=== PATIENT | male | born 1960 | race Caucasian/White ===

== ENCOUNTER 2019-01-01 13:48 | Inpatient (IN) | payer OTHER ==
--- NOTE | 2019-01-01 14:36 | HP ---
HISTORY OF PRESENT ILLNESS: Mr. Lomas is a 58-year-old morbidly obese man, who presented to [facility] in [place] with insidious onset right lower quadrant abdominal pain, which started yesterday. Pain is described as sharp, rated at 9/10, associated with multiple episodes of nausea, but no emesis. Pain has persisted in the right lower quadrant without any radiation. The patient denies any change in his bowel habits. He denies any fevers or chills. PAST MEDICAL HISTORY: Pertinent for degenerative arthritic disease, morbid obesity, and chronic asthma. PAST SURGICAL HISTORY: Pertinent for childhood pyloromyotomy, arthroscopic left knee surgery, multilevel cervical spine fusion as well as L4-L5 spinal fusion. He also admits to have had a right wrist carpal tunnel release. SOCIAL HISTORY: The patient lives at home with his elderly mother. He is currently unemployed. He denies any cigarette smoking, ethanol, or illicit drug abuse. FAMILY HISTORY: Noncontributory for this patient's age. PREHOSPITAL MEDICATIONS: Notable for: 1. Meloxicam 15 mg p.o. daily. 2. Tramadol 50 mg p.o. q.6 hours p.r.n. 3. Gabapentin 100 mg p.o. daily. 4. Albuterol inhalation therapy p.r.n. daily. 5. Asmanex inhalation therapy daily. 6. Vitamin D3 of 1000 units p.o. daily. 7. Vitamin B complex 1200 mcg sublingual daily. ALLERGIES: ASPIRIN, PENICILLIN, AND TIZANIDINE. REVIEW OF SYSTEMS: Ten-point review of systems is essentially unremarkable except as stated in past medical history and chief complaint. PHYSICAL EXAMINATION: GENERAL: This reveals a 58-year-old normally developed man, who is otherwise coherent, interactive, and appears stated age. The patient is alert and oriented x3, appears to be in no significant acute distress at the time of my evaluation. VITAL SIGNS: Include blood pressure 142/87, pulse 73, respiratory rate 18, temperature is 97.7 degrees Fahrenheit, and oxygen saturation is 97% on room air. HEENT: Pupils equal, round, reactive to light and accommodation. Extraocular muscles are intact bilaterally. No sclerae icterus present. Oral mucosa is pink and moist. No lesions are noted. NECK: Supple. No palpable lymphadenopathy or thyromegaly present. HEART: Reveals regular rate and rhythm. No murmurs or gallops auscultated. LUNGS: Clear to auscultation bilaterally. Breathing, regular and nonlabored. ABDOMEN: Soft and obese. He has right lower quadrant tenderness to palpation at McBurney's. He has a positive Rovsing sign. Liver and spleen are otherwise nonpalpable below costal margin. EXTREMITIES: Reveal 2+ radial and pedal pulses bilaterally. No ankle edema is present. NEUROLOGIC: Reveals no focal deficits present. LABORATORY FINDINGS: Today, include a CBC with 8400 white blood cells, hemoglobin and hematocrit 16.0 and 47.8 respectively. Platelet count is 231,000. Metabolic profile; sodium 144, potassium 3.0, chloride is 110, bicarb 22, BUN 11, creatinine is 1.16, glucose 172, total bilirubin 1.4, AST and ALT normal at 15 and 11 respectively. Serum lipase is also normal at 22 units/L. I have personally reviewed CT scan of the abdomen and pelvis, which is remarkable for a dilated appendix with periappendiceal fat stranding. IMPRESSION: Acute appendicitis. PLAN: Laparoscopic appendectomy. I have advised the patient of the above findings and plan. I have also informed them of the risks and benefits of the proposed surgery to include, but not limited to bleeding, infection, injury to bowel or surrounding structures. This information was given to the patient in the presence of his elderly mother. They indicated understanding of information given. The patient has granted consent for this admission and surgical intervention. Job ID: [id number]
[2019-01-01] MEDS ORDERED: Rocuronium Bromide 10 MG/ML (10ML VIAL) ONE (15:27)
[2019-01-01] MEDS ORDERED: Ondansetron PF 4 MG/2 ML Vial ONE (15:27)
[2019-01-01] MEDS ORDERED: Dexamethasone 20 MG/5 ML VIAL ONE (15:27)
[2019-01-01] MEDS ORDERED: Glycopyrrolate 0.2 MG/ML 5 ML SYRINGE ONE (15:27)
[2019-01-01] MEDS ORDERED: PROPOFOL 200 MG/20 ML VIAL ONE (15:27)
[2019-01-01] MEDS ORDERED: Lidocaine 1% PF 5 ML VIAL ONE (15:27)
[2019-01-01] MEDS ORDERED: Succinylcholine Chloride 20 MG/ML 10 ml SYRINGE FS ONE (15:27)
[2019-01-01] MEDS ORDERED: Bupivacaine/Epinephrine 0.25% 30 ML VIAL ONE (17:07)
[2019-01-01] MEDS ORDERED: Fentanyl 100 MCG/2 ML VIAL ONE (18:06)
[2019-01-01] MEDS ORDERED: Midazolam HCl 2 mg/2 ml Vial ONE (18:06)
[2019-01-01] MEDS ORDERED: Lidocaine 2% Jelly 5 ML TUBE ONE (18:06)
[2019-01-01] MEDS ORDERED: Promethazine HCl 25 MG/ML VIAL IM PRN ×2 (18:57→19:14)
[2019-01-01] MEDS ORDERED: Promethazine HCl 25 MG/ML VIAL SLOW IVP PRN (18:57)
[2019-01-01] MEDS ORDERED: Ondansetron HCl/PF 4 MG/2 ML Vial IVP PRN (18:57)
[2019-01-01] MEDS ORDERED: Ondansetron PF 4 MG/2 ML Vial IVP PRN (19:14)
[2019-01-01] MEDS ORDERED: hydrALAZINE 20 MG/ML VIAL SLOW IVP PRN (19:14)
[2019-01-01] MEDS ORDERED: Dextrose 50% Abboject 50 ML SYRINGE SLOW IVP PRN (19:14)
[2019-01-01] MEDS ORDERED: Acetaminophen 325 MG TAB PO PRN (19:14)
[2019-01-01] MEDS ORDERED: Morphine 4 MG/ML VIAL SLOW IVP PRN ×2 (19:14)
[2019-01-01] MEDS ORDERED: HYDROcodone/Acetaminophen 10/325 mg Tablet PO PRN ×2 (19:14)
[2019-01-01] MEDS ORDERED: Dextrose 5% in Water 1,000 ML IV PRN (19:14)
[2019-01-01] MEDS ORDERED: Ketorolac Tromethamine 30 MG/ML VIAL ONE (19:26)
[2019-01-01] MEDS ORDERED: Levofloxacin 500 mg/D5W 100 ml Premix Bag IVPB SCH (20:00)
[2019-01-01] MEDS: Famotidine 20 MG TAB PO SCH (22:55)
[2019-01-01] MEDS: Sodium Chloride 0.9% 1,000 ML IV SCH (22:56)
[2019-01-01] MEDS: Ketorolac Tromethamine 30 MG/ML VIAL IVP SCH (22:59)
[2019-01-01] MEDS: Famotidine/PF 20 mg/2ml Vial SLOW IVP SCH (23:03)
[2019-01-01 23:54] VITALS: BMI 42.8
[2019-01-02 04:51] LABS: #Lymphocytes 0.7 thou/uL (1.20-3.40); #Monocytes 0.5 thou/uL (0.11-0.59); #Neutrophils 10.2 thou/uL (1.40-6.50); %Eosinophils 0.2 % (0.0-10.0); %Lymphocytes 6.3 % (21.0-51.0); %Monocytes 4.1 % (0.0-10.0); %Neutrophils 89.3 % (42.0-75.0); Hemoglobin 15.2 g/dL (14.0-18.0); Mean Corpuscular HGB CONC 33.3 g/dL (32.0-36.0); Mean Corpuscular Hemoglobin 32.1 pg (27.0-31.0); Mean Corpuscular Volume 96.4 fL (78.0-98.0); Mean Platelet Volume 7.8 fL (7.4-10.4); Platelet Count 214 thou/uL (130-400); Red Blood Cell (RBC) Count 4.72 mill/uL (4.70-6.10); White Blood Cell (WBC) Count 11.4 thou/uL (4.8-10.8)
[2019-01-02 05:19] LABS: Anion Gap 11 mmol/L (10-20); BUN (Urea Nitrogen) 13 mg/dL (8.4-25.7); Calc. Creatinine Clearance 149 mL/min (70-130); Calcium 8.6 mg/dL (7.8-10.44); Carbon Dioxide 22 mmol/L (22-29); Chloride 110 mmol/L (98-107); Estimated GFR-MDRD 80; Glucose 172 mg/dL (70-105); Potassium 3.8 mmol/L (3.5-5.1); Sodium 139 mmol/L (136-145)
[2019-01-02] MEDS: Ketorolac Tromethamine 30 MG/ML VIAL IVP SCH (05:57)
[2019-01-02] MEDS: Sodium Chloride 0.9% 1,000 ML IV SCH (05:59)
[2019-01-02] MEDS: Famotidine/PF 20 mg/2ml Vial SLOW IVP SCH (08:40)
[2019-01-02] MEDS: Famotidine 20 MG TAB PO SCH (08:40)
[2019-01-02] MEDS ORDERED: Enoxaparin Sodium 40 MG/0.4 ML SYRINGE SC SCH (09:00)
--- NOTE | 2019-01-02 11:49 | OP ---
DATE OF PROCEDURE: 01/01/2019 PREOPERATIVE DIAGNOSIS: Acute appendicitis. PROCEDURE PERFORMED: Laparoscopic appendectomy. INDICATIONS: A 58-year-old male with a 2-day history of right lower quadrant pain. CT scan shows acute appendicitis. FINDINGS: Acute gangrenous appendicitis. DESCRIPTION OF PROCEDURE: After informed consent was obtained, the patient was taken to the operating room, given general endotracheal anesthesia. He was placed in supine position. Abdomen was prepped and draped in usual fashion. Local anesthesia was infiltrated subcutaneously and deep. A periumbilical incision was performed. Subcu was divided sharply. The fascia was grasped and 2 stay sutures of 0 Vicryl were placed in each side of midline. The midline was incised. Digital palpation revealed no local adhesions. A blunt 12 mm trocar was inserted. Pneumoperitoneum was created to a pressure of 15 mmHg. A 0-degree laparoscope was inserted under direct vision. Two 5 mm ports were placed, one suprapubic, one right lateral abdomen. The appendix was found. The mesoappendix was divided with the LigaSure. Base of the appendix was divided with a linear 45 mm stapler. The appendix was placed in endosac and removed from the abdomen in the endosac. Hemostasis was assured. The abdomen was irrigated, irrigation fluid removed. Trocars and retractors were removed. The fascia was closed with interrupted 0 Vicryl suture. The skin was closed with interrupted 4-0 Rapide. Dermabond was applied. The patient tolerated the procedure well, transferred to recovery room in good condition. Sponge and needle counts were verified, correct x2. Job ID: [id number]
[2019-01-02 12:15] VITALS: BP 125/72; TEMP 98.1
--- NOTE | 2019-01-02 14:20 | DIS ---
DATE OF ADMISSION: 01/01/2019 DATE OF DISCHARGE: 01/02/2019 DISCHARGE DIAGNOSIS: Acute appendicitis. PROCEDURES DURING ADMISSION: Laparoscopic appendectomy. INDICATIONS: A 58-year-old male presented with a 2-day history of right lower quadrant pain. His CT showed appendicitis. He was taken to the operating room, where he underwent a laparoscopic appendectomy. Postoperatively, he has done well. He is discharged home on hydrocodone and Zofran and follow up with me in 2 weeks. Job ID: [id number]
== END 2019-01-02 12:45 | disposition home or self-care (01) | DRG 342 ==
LOC: SDC 13:48 → SJJU 19:14 → UNDODISIN 01-02 10:53
PROVIDERS: ADMIT Surgery; ATTEND Surgery
PROC: 0DTJ4ZZ Resection of Appendix, Percutaneous Endoscopic Approach (ICD-10-PCS; principal; 2019-01-01)
DX: K35.891 Other acute appendicitis without perforation, with gangrene (principal); Z68.41 Body mass index [BMI] 40.0-44.9, adult; E66.01 Morbid (severe) obesity due to excess calories; M19.90 Unspecified osteoarthritis, unspecified site; J45.909 Unspecified asthma, uncomplicated; Z98.1 Arthrodesis status; Z56.0 Unemployment, unspecified; Z88.0 Allergy status to penicillin; Z88.8 Allergy status to other drugs, medicaments and biological substances
CPT/HCPCS: 36415; 80048; 85025; 88304; J0690; J1100; J1650; J1885; J1956; J2001; J2250; J2405; J2704; J3010; S0028